=== PATIENT | female | born 1940 | race Caucasian/White ===

== ENCOUNTER 2023-03-31 10:45 | Emergency (ER) | payer OTHER ==
[~2023-03-31] VITALS: Ht 162.6 cm; Wt 101.2 kg
[2023-03-31 11:59] VITALS: PULSE 80; RESP 16; TEMP 98; O2SAT 96
[2023-03-31] MEDS: SODIUM CHLORIDE 0.9% 1,000 ML IV ONE (13:03)
[2023-03-31 13:12] LABS: Hematocrit 34.6 % (36.0-46.0); Hemoglobin 11.5 g/dL (12.2-16.2); Mean Corpuscular Hemoglobin 33.5 pg (28.0-32.0); Mean Corpuscular Hgb Conc. 33.3 g/dL (32.0-36.0); Mean Corpuscular Volume 100.5 fL (80.0-100.0); Red Blood Cells 3.45 10^6/uL (4.0-5.20); Red Cell Distribution Width 14.1 % (11.8-14.3); White Blood Cell 9.4 10^3/uL (4.4-10.8)
[2023-03-31 13:21] LABS: Basophils % (manual) 0 (0.0-2.0); Blast Cells 0; Eosinophils % (manual) 0 (0-7); Metamyelocytes % 0; Myelocytes % 0; Promyelocytes % 0; Reactive Lymphocytes 0
[2023-03-31 13:48] LABS: Albumin 3.4 g/dL (3.2-4.8); Alkaline Phosphatase 75 U/L (46-116); Anion Gap 5 (5-15); Aspartate Aminotransferase 10 U/L (13-40); BUN/Creatinine Ratio 23.3 (10.0-20.0); Bilirubin, Total 0.8 mg/dL (0.2-1.0); Blood Urea Nitrogen 30 mg/dL (9-23); Calcium 9.6 mg/dL (8.7-10.4); Carbon Dioxide 29 mmol/L (20-30); Chloride 100 mmol/L (98-107); Glucose 164 mg/dL (74-106); Magnesium 1.2 mg/dL (1.6-2.6); Potassium 4.1 mmol/L (3.5-5.1); Sodium 134 mmol/L (136-145); Total Protein 6.8 g/dL (5.7-8.2)
[2023-03-31 13:53] LABS: Alanine Aminotransferase < 9 U/L (7-40)
[2023-03-31 14:20] LABS: Band Neutrophils % (manual) 2; Lymphocytes % (manual) 22 (10.0-50.0); Monocytes % (manual) 26 (0-12)
[2023-03-31 14:21] LABS: Platelet Estimate Adequate
[2023-03-31 14:38] LABS: COVID19 ANTIGEN SOFIA FIA NEGATIVE (NEGATIVE)
[2023-03-31 16:20] LABS: Urine Amorphous Crystal FEW /hpf (None Seen); Urine Bacteria MOD /hpf (None Seen); Urine Blood 1+ /uL (Negative); Urine Clarity HAZY (Clear); Urine Color Yellow (Yellow); Urine Hyaline Cast FEW /lpf (0 - 2); Urine Mucus FEW (None Seen); Urine Protein, UAD TRACE (Negative); Urine Specific Gravity 1.018 (1.001-1.035); Urine Urobilinogen Normal (Negative); Urine WBC 14 /hpf (0 - 5); Urine pH 5.5 (5.0-8.0)
[2023-03-31] MEDS: MAGNESIUM SULFATE 1GM/100ML 100 ML IV SCH (16:58)
[2023-03-31] MEDS: cefTRIAXone 1GM/50ML D5W 50 ML IV ONE (18:51)
[2023-03-31] MEDS ORDERED: BISM262C44 PO (18:59)
[2023-03-31] MEDS ORDERED: CEFD300C2 PO (18:59)
[2023-03-31] MEDS ORDERED: ALBUAER3 IN (18:59)
[2023-03-31] MEDS ORDERED: CARB6.5S44 OT (18:59)
[2023-03-31 19:00] VITALS: BP 108/64; PULSE 80; RESP 16; O2SAT 97
== END 2023-03-31 19:30 | disposition home or self-care (01) ==
LOC: ER 10:45
DX: J84.10 Pulmonary fibrosis, unspecified (principal); N39.0 Urinary tract infection, site not specified; J06.9 Acute upper respiratory infection, unspecified; D50.9 Iron deficiency anemia, unspecified; E11.21 Type 2 diabetes mellitus with diabetic nephropathy; E11.22 Type 2 diabetes mellitus with diabetic chronic kidney disease; I13.0 Hypertensive heart and chronic kidney disease with heart failure and stage 1 through stage 4 chronic kidney disease, or unspecified chronic kidney disease; N18.30 Chronic kidney disease, stage 3 unspecified; I50.9 Heart failure, unspecified; E11.65 Type 2 diabetes mellitus with hyperglycemia; E83.42 Hypomagnesemia; H61.23 Impacted cerumen, bilateral; E78.5 Hyperlipidemia, unspecified; Z20.822 Contact with and (suspected) exposure to COVID-19
CPT/HCPCS: 36415; 71046; 80053; 81001; 83735; 84484; 85007; 85027; 87426; 93005; 96361; 96365; 96366; 96367; 99285; J0696; J3475; J7030

== ENCOUNTER 2023-04-01 16:39 | Inpatient (IN) | payer OTHER ==
[~2023-04-01] VITALS: Ht 162.6 cm; Wt 109.9 kg
[~2023-04-01 16:39] MED LIST: ALBUAER3 IN; BISM262C44 PO; CARB6.5S44 OT; CEFD300C2 PO
[2023-04-01 17:25] VITALS: PULSE 104; RESP 20; O2SAT 94
[2023-04-01 19:30] VITALS: RESP 18; O2SAT 95
[2023-04-01] MEDS: ALBUTEROL SULF 2.5 MG/0.5ML(0.5%) NEB SOLN NEB ONE (19:39)
[2023-04-01 19:40] LABS: Hematocrit 32.9 % (36.0-46.0); Hemoglobin 10.9 g/dL (12.2-16.2); Mean Corpuscular Hemoglobin 33.1 pg (28.0-32.0); Mean Corpuscular Hgb Conc. 33.2 g/dL (32.0-36.0); Mean Corpuscular Volume 99.8 fL (80.0-100.0); Red Blood Cells 3.29 10^6/uL (4.0-5.20)
[2023-04-01 19:41] LABS: Basophils % (manual) 0 (0.0-2.0); Blast Cells 0; Eosinophils % (manual) 0 (0-7); Promyelocytes % 0
[2023-04-01 19:56] LABS: Alkaline Phosphatase 100 U/L (46-116); Anion Gap 7 (5-15); Aspartate Aminotransferase 16 U/L (13-40); BUN/Creatinine Ratio 23.9 (10.0-20.0); Bilirubin, Total 1.2 mg/dL (0.2-1.0); Blood Urea Nitrogen 32 mg/dL (9-23); Calcium 9.3 mg/dL (8.5-10.1); Carbon Dioxide 29 mmol/L (20-30); Chloride 100 mmol/L (98-107); Glucose 185 mg/dL (74-106); Potassium 4.2 mmol/L (3.5-5.1); Sodium 136 mmol/L (136-145); Total Protein 5.9 g/dL (5.7-8.2)
[2023-04-01 19:57] LABS: Alanine Aminotransferase < 9 U/L (7-40)
[2023-04-01] MEDS: SODIUM CHLORIDE 0.9% 250 ML IV ONE (20:22)
[2023-04-01] MEDS: SODIUM CHLORIDE 0.9% 1,000 ML IV ONE ×2 (20:45→21:00)
[2023-04-01 20:48] LABS: Band Neutrophils % (manual) 10; Lymphocytes % (manual) 20 (10.0-50.0); Monocytes % (manual) 22 (0-12)
[2023-04-01 20:49] LABS: Metamyelocytes % 2; Myelocytes % 1; Platelet Estimate Adequate; RBC Morphology Normal; Reactive Lymphocytes 1
[2023-04-01] MEDS: NOREPINEPHRINE 8 MG/250ML KIT 250 ML IV SCH (22:43)
[2023-04-01 22:45] VITALS: PULSE 115; RESP 18; O2SAT 95
[2023-04-01] MEDS: levoFLOXacin 500MG 100 ML IV ONE (22:49)
[2023-04-02] VITALS (7 sets, daily range): BP systolic 107; BP diastolic 70; PULSE 80–120; RESP 20–29; O2SAT 90–94
[2023-04-02] MEDS ORDERED: AMIODARONE 450mg/250ml AE 250 ML IV SCH (05:00)
[2023-04-02] MEDS ORDERED: ONDANSETRON HCL 4 MG/2 ML VIAL IV PRN (05:45)
[2023-04-02] MEDS ORDERED: NITROGLYCERIN 0.4 MG SL TAB SL PRN (05:45)
[2023-04-02] MEDS ORDERED: ACETAMINOPHEN 325 MG TAB PO PRN (05:45)
[2023-04-02] MEDS ORDERED: ALBUTEROL SULF 2.5 MG/0.5ML(0.5%) NEB SOLN NEB PRN (05:45)
[2023-04-02] MEDS ORDERED: MORPHINE SULFATE INJ 2 MG/ml SYRG IV PRN (05:45)
[2023-04-02] MEDS: DIGOXIN (250MCG/ML) 2 ML AMPULE IV ONE (06:39)
[2023-04-02] MEDS: FUROSEMIDE 20 MG/2 ML VIAL IV SCH ×2 (07:18→19:14)
[2023-04-02] MEDS: ASPirin 81 mg TAB PO SCH (09:21)
[2023-04-02] MEDS: cefTRIAXone 1GM/50ML D5W 50 ML IV SCH (09:21)
[2023-04-02 09:35] LABS: Urine Bacteria FEW /hpf (None Seen); Urine Blood 2+ /uL (Negative); Urine Clarity Clear (Clear); Urine Color Yellow (Yellow); Urine Protein, UAD TRACE (Negative); Urine Specific Gravity 1.014 (1.001-1.035); Urine Urobilinogen Normal (Negative); Urine WBC 2 /hpf (0 - 5)
[2023-04-02 09:42] LABS: Creatinine, Urine 97.78 mg/dL (30.0-125.0)
[2023-04-02] MEDS ORDERED: LOSA100T58 PO (11:07)
[2023-04-02] MEDS ORDERED: MIRT1TAB38 PO (11:07)
[2023-04-02] MEDS ORDERED: CHLO25TA2 PO (11:07)
[2023-04-02] MEDS ORDERED: CARV25TA55 PO (11:07)
[2023-04-02] MEDS ORDERED: OMEP-434 PO (11:07)
[2023-04-02] MEDS ORDERED: CITA-77 PO (11:07)
[2023-04-02] MEDS ORDERED: SIMV40TA18 PO (11:07)
[2023-04-02] MEDS: LEVALBUTEROL HCL 1.25 MG/3 ML NEB NEB SCH (13:08)
[2023-04-02] MEDS: IPRATROPIUM BROM 0.5 MG/2.5ML INH SOL NEB SCH (13:08)
[2023-04-02 14:01] LABS: INR 1.26 (0.9-1.15); Partial Thromboplastin Time 26.2 SEC (24.5-34.5)
[2023-04-02 14:45] LABS: Chloride 103 mmol/L (98-107); Potassium 3.9 mmol/L (3.5-5.1); Sodium 135 mmol/L (136-145)
[2023-04-02 14:46] LABS: Anion Gap 7 (5-15); Carbon Dioxide 25 mmol/L (20-30)
[2023-04-02 14:47] LABS: Calcium 9.6 mg/dL (8.5-10.1)
[2023-04-02 14:52] LABS: BUN/Creatinine Ratio 19.8 (10.0-20.0); Blood Urea Nitrogen 32 mg/dL (9-23); Glucose 162 mg/dL (74-106)
[2023-04-02] MEDS: AMIODARONE BOLUS KIT 100 ML IV ONE (15:26)
[2023-04-02] MEDS: AMIODARONE 450mg/250ml AE 250 ML IV SCH ×2 (15:49→23:10)
[2023-04-02] MEDS: LIDOCAINE 1% (LOCAL ANESTH.) PF 5ml SDV ID ONE (16:48)
[2023-04-02] MEDS: LINEZOLID 600MG/300ML 300 ML IV SCH (21:10)
[2023-04-02] MEDS: SODIUM CHLOR 0.9% PF (SALINE LOCK) 10ML VIAL/SYR IV SCH (21:10)
[2023-04-02] MEDS: CEFEPIME 2GM/50ML NS 50 ML IV SCH (21:10)
[2023-04-02] MEDS: ATORVASTATIN 20 MG TAB PO SCH (21:11)
[2023-04-02] MEDS: ENOXAPARIN SOD 100 MG/1 ML SYRINGE SC SCH (21:11)
[2023-04-02] MEDS ORDERED: ATORVASTATIN 20 MG TAB PO SCH (22:00)
[2023-04-02] MEDS ORDERED: CARVEDILOL 12.5 MG TAB PO SCH (22:00)
[2023-04-03] VITALS (9 sets, daily range): PULSE 72–125; RESP 19–25; O2SAT 89–97
[2023-04-03 05:43] LABS: Hematocrit 31.5 % (36.0-46.0); Hemoglobin 10.5 g/dL (12.2-16.2); Mean Corpuscular Hemoglobin 33.4 pg (28.0-32.0); Mean Corpuscular Hgb Conc. 33.4 g/dL (32.0-36.0); Red Blood Cells 3.15 10^6/uL (4.0-5.20); Red Cell Distribution Width 14.2 % (11.8-14.3); White Blood Cell 8.6 10^3/uL (4.4-10.8)
[2023-04-03 06:02] LABS: Basophils % (manual) 0 (0.0-2.0); Blast Cells 0; Eosinophils % (manual) 0 (0-7); Reactive Lymphocytes 0
[2023-04-03 06:12] LABS: Albumin 3.1 g/dL (3.2-4.8); Alkaline Phosphatase 88 U/L (46-116); Anion Gap 9 (5-15); Aspartate Aminotransferase 16 U/L (13-40); BUN/Creatinine Ratio 21.3 (10.0-20.0); Bilirubin, Total 0.9 mg/dL (0.2-1.0); Blood Urea Nitrogen 35 mg/dL (9-23); Calcium 9.3 mg/dL (8.7-10.4); Carbon Dioxide 25 mmol/L (20-30); Chloride 101 mmol/L (98-107); Glucose 173 mg/dL (74-106); Potassium 3.6 mmol/L (3.5-5.1); Sodium 135 mmol/L (136-145); Total Protein 6.3 g/dL (5.7-8.2)
[2023-04-03 06:55] LABS: Alanine Aminotransferase < 9 U/L (7-40)
[2023-04-03 11:31] LABS: Rapid Influenza A Negative (Negative); Rapid Influenza B Negative (Negative)
[2023-04-03 11:41] LABS: Band Neutrophils % (manual) 4; Lymphocytes % (manual) 13 (10.0-50.0); Metamyelocytes % 22; Monocytes % (manual) 17 (0-12); Myelocytes % 2; Promyelocytes % 2
[2023-04-03 11:42] LABS: Platelet Estimate Adequate
[2023-04-03] MEDS: GENTAMICIN OPTH sol 0.3% 5ml EACHEYE SCH (14:24)
[2023-04-03] MEDS: AMIODARONE BOLUS KIT 100 ML IV ONE (21:56)
[2023-04-03] MEDS: DIGOXIN (250MCG/ML) 2 ML AMPULE IV ONE (23:08)
[2023-04-04] VITALS (12 sets, daily range): PULSE 99–115; RESP 20–32; O2SAT 91–96
[2023-04-04 05:59] LABS: Chloride 99 mmol/L (98-107); Potassium 3.3 mmol/L (3.5-5.1); Sodium 132 mmol/L (136-145)
[2023-04-04 06:00] LABS: Anion Gap 9 (5-15); Calcium 8.8 mg/dL (8.7-10.4); Carbon Dioxide 24 mmol/L (20-30)
[2023-04-04 06:05] LABS: BUN/Creatinine Ratio 25.5 (10.0-20.0); Blood Urea Nitrogen 35 mg/dL (9-23); Glucose 201 mg/dL (74-106)
[2023-04-04 06:08] LABS: Hematocrit 32.1 % (36.0-46.0); Hemoglobin 10.8 g/dL (12.2-16.2); Mean Corpuscular Hemoglobin 33.5 pg (28.0-32.0); Mean Corpuscular Hgb Conc. 33.5 g/dL (32.0-36.0); Mean Corpuscular Volume 99.9 fL (80.0-100.0); Red Blood Cells 3.22 10^6/uL (4.0-5.20); Red Cell Distribution Width 13.9 % (11.8-14.3); White Blood Cell 7.5 10^3/uL (4.4-10.8)
[2023-04-04 06:20] LABS: Basophils % (manual) 0 (0.0-2.0); Eosinophils % (manual) 0 (0-7); Metamyelocytes % 0; Myelocytes % 0; Promyelocytes % 0; Reactive Lymphocytes 0
[2023-04-04] MEDS: POTASSIUM CHL 20 Meq TABLET PO ONE (08:31)
[2023-04-04 08:52] LABS: Band Neutrophils % (manual) 12; Blast Cells 2; Lymphocytes % (manual) 34 (10.0-50.0); Monocytes % (manual) 16 (0-12); Platelet Estimate Adequate
[2023-04-04] MEDS: FUROSEMIDE 20 MG/2 ML VIAL IV SCH (10:20)
[2023-04-04] MEDS: APIXABAN 2.5 MG TAB PO SCH (10:24)
[2023-04-04] MEDS: APIXABAN 2.5 MG TAB PO ONE (11:53)
[2023-04-04] MEDS: POTASSIUM CHL 20MEQ/100ML 100 ML IV SCH (11:54)
[2023-04-04] MEDS: FUROSEMIDE 20 MG/2 ML VIAL IV ONE (11:55)
[2023-04-04] MEDS: VASOPRESSIN 20 UNITS in SODIUM CHL 0.9% 99 ML IV SCH (12:49)
[2023-04-04] MEDS: HYDROCORTISONE SOD SUCC 100 MG/2ML INJ VIAL IV SCH (22:47)
[2023-04-04] MEDS: APIXABAN 5 MG TAB PO SCH (22:50)
[2023-04-04] MEDS: guaiFENesin-DM 100/10mg/5ml SYR PO PRN (22:50)
[2023-04-05] VITALS (10 sets, daily range): BP systolic 102; BP diastolic 60; PULSE 76–118; RESP 20–35; TEMP 98.7; O2SAT 88–97
[2023-04-05 05:27] LABS: Hematocrit 29.1 % (36.0-46.0); Hemoglobin 9.8 g/dL (12.2-16.2); Mean Corpuscular Hgb Conc. 33.8 g/dL (32.0-36.0)
[2023-04-05 05:29] LABS: Mean Corpuscular Hemoglobin 33.9 pg (28.0-32.0); Mean Corpuscular Volume 100.5 fL (80.0-100.0); Red Cell Distribution Width 13.9 % (11.8-14.3); White Blood Cell 6.1 10^3/uL (4.4-10.8)
[2023-04-05 05:56] LABS: Basophils % (manual) 0 (0.0-2.0); Eosinophils % (manual) 0 (0-7); Metamyelocytes % 0; Myelocytes % 0; Promyelocytes % 0; Reactive Lymphocytes 0
[2023-04-05 09:14] LABS: Band Neutrophils % (manual) 8; Blast Cells 4; Lymphocytes % (manual) 22 (10.0-50.0); Monocytes % (manual) 22 (0-12)
[2023-04-05 09:15] LABS: Macrocytosis Slight; Platelet Estimate Decreased
[2023-04-05 09:34] LABS: Base Excess -1.9 mmol/L (-2.0-2.0)
[2023-04-05 09:42] LABS: Chloride 100 mmol/L (98-107); Potassium 4.2 mmol/L (3.5-5.1); Sodium 133 mmol/L (136-145)
[2023-04-05 09:45] LABS: Anion Gap 11 (5-15); Calcium 9.8 mg/dL (8.5-10.1); Carbon Dioxide 22 mmol/L (20-30)
[2023-04-05 09:50] LABS: Alkaline Phosphatase 92 U/L (46-116); BUN/Creatinine Ratio 26.5 (10.0-20.0); Blood Urea Nitrogen 39 mg/dL (9-23); Glucose 264 mg/dL (74-106)
[2023-04-05 09:52] LABS: Albumin 3.1 g/dL (3.2-4.8); Aspartate Aminotransferase 17 U/L (13-40); Total Protein 6.4 g/dL (5.7-8.2)
[2023-04-05 09:55] LABS: Alanine Aminotransferase < 9 U/L (7-40)
[2023-04-05] MEDS ORDERED: POTASSIUM EFFERVESENT TAB 25 MEQ PO SCH (10:00)
[2023-04-05 10:08] LABS: Magnesium 1.3 mg/dL (1.6-2.6)
[2023-04-05] MEDS: MAGNESIUM SULFATE 1GM/100ML 100 ML IV SCH (13:50)
[2023-04-05] MEDS: FUROSEMIDE 20 MG/2 ML VIAL IV ONE (23:50)
[2023-04-06] VITALS (78 sets, daily range): BP systolic 68–139; BP diastolic 32–104; PULSE 88–139; RESP 16–38; TEMP 97–100.6; O2SAT 16–99
[2023-04-06 01:59] LABS: Base Excess -5.1 mmol/L (-2.0-2.0)
[2023-04-06 05:27] LABS: Hemoglobin 10.5 g/dL (12.2-16.2); Red Blood Cells 3.11 10^6/uL (4.0-5.20); White Blood Cell 6.6 10^3/uL (4.4-10.8)
[2023-04-06 05:30] LABS: Hematocrit 31.6 % (36.0-46.0); Mean Corpuscular Hemoglobin 33.6 pg (28.0-32.0); Mean Corpuscular Hgb Conc. 33.1 g/dL (32.0-36.0); Mean Corpuscular Volume 101.6 fL (80.0-100.0); Red Cell Distribution Width 14.6 % (11.8-14.3)
[2023-04-06 05:34] LABS: Chloride 98 mmol/L (98-107); Potassium 3.9 mmol/L (3.5-5.1); Sodium 130 mmol/L (136-145)
[2023-04-06 05:35] LABS: Anion Gap 12 (5-15); Carbon Dioxide 20 mmol/L (20-30)
[2023-04-06 05:36] LABS: Calcium 10.1 mg/dL (8.7-10.4)
[2023-04-06 05:38] LABS: Band Neutrophils % (manual) 0; Basophils % (manual) 0 (0.0-2.0); Eosinophils % (manual) 0 (0-7); Metamyelocytes % 0; Promyelocytes % 0; Reactive Lymphocytes 0
[2023-04-06 05:40] LABS: Glucose 273 mg/dL (74-106)
[2023-04-06 05:41] LABS: BUN/Creatinine Ratio 30.5 (10.0-20.0); Blood Urea Nitrogen 47 mg/dL (9-23); Magnesium 1.9 mg/dL (1.6-2.6)
[2023-04-06 06:56] LABS: Blast Cells 2; Lymphocytes % (manual) 7 (10.0-50.0); Monocytes % (manual) 13 (0-12); Myelocytes % 3; Platelet Estimate Decreased
[2023-04-06 07:44] LABS: Base Excess -4.3 mmol/L (-2.0-2.0)
[2023-04-06] MEDS: ETOMIDATE (2MG/ML) 20ML VIAL IV ONE ×2 (10:07→11:10)
[2023-04-06] MEDS: ROCURONIUM 10MG/ML 10ML VIAL IV ONE ×2 (10:07→11:19)
[2023-04-06] MEDS: MIDAZOLAM DRIP 50 mg/50mL 50 ML IV ONE (10:11)
[2023-04-06] MEDS ORDERED: LIDOCAINE 2%HCL (LOCAL ANESTH.) INJ 20ML MDV ONE (10:25)
[2023-04-06] MEDS ORDERED: LIDOCAINE 2% JELLY 11ml (GLYDO) ONE (10:25)
[2023-04-06] MEDS ORDERED: SODIUM CHLORIDE LOCK 0 ML ONE (10:25)
[2023-04-06] MEDS ORDERED: GLYCOPYRROLATE 0.2 MG/ML 1ML VIAL ONE (10:26)
[2023-04-06] MEDS ORDERED: EPINEPHrine HCL 1 MG/1 ML AMP ONE (10:26)
[2023-04-06] MEDS ORDERED: fentaNYL CITRATE 100 MCG/2 ML VL ONE (10:26)
[2023-04-06] MEDS ORDERED: MIDAZOLAM HCL 5 MG/ML-1ML VIAL ONE (10:26)
[2023-04-06] MEDS: PROPOFOL 100 ML IV SCH (11:00)
[2023-04-06] MEDS: FUROSEMIDE 20 MG/2 ML VIAL IV ONE (11:11)
[2023-04-06] MEDS: FUROSEMIDE INJECTION 100 MG in D5W 5% 100 ML IV SCH (11:36)
[2023-04-06] MEDS: fentaNYL Drip 2500mCg/250mlNS 250 ML IV SCH (11:37)
[2023-04-06] MEDS: MIDAZOLAM DRIP 50 mg/50mL 50 ML IV SCH (11:38)
[2023-04-06 12:27] LABS: Base Excess -7.4 mmol/L (-2.0-2.0)
[2023-04-06] MEDS ORDERED: Glucerna 1.2 Cal 1Liter BOTTLE GT SCH (12:45)
[2023-04-06] MEDS ORDERED: fentaNYL Drip 2500mCg/250mlNS 250 ML IV SCH (12:45)
[2023-04-06 14:46] LABS: Base Excess -6.3 mmol/L (-2.0-2.0)
[2023-04-06 16:31] LABS: Base Excess -4.8 mmol/L (-2.0-2.0)
[2023-04-06] MEDS: AMIODARONE BOLUS KIT 100 ML IV ONE (21:00)
[2023-04-06] MEDS: AMIODARONE 450mg/250ml AE 250 ML IV SCH (21:17)
[2023-04-06] MEDS: AMIODARONE HCL 75 MG in D5W 5% 100 ML IV ONE (21:43)
[2023-04-06] MEDS: ALBUMIN 25% 100 ML IV ONE (23:16)
[2023-04-07] VITALS (108 sets, daily range): BP systolic 68–134; BP diastolic 22–86; PULSE 73–136; RESP 24–29; TEMP 98.1–99.7; O2SAT 86–99
[2023-04-07 04:29] LABS: Hematocrit 29.5 % (36.0-46.0); Hemoglobin 9.7 g/dL (12.2-16.2); Mean Corpuscular Hemoglobin 33.2 pg (28.0-32.0); Mean Corpuscular Hgb Conc. 32.8 g/dL (32.0-36.0); Mean Corpuscular Volume 101.1 fL (80.0-100.0); Red Blood Cells 2.91 10^6/uL (4.0-5.20); Red Cell Distribution Width 14.8 % (11.8-14.3); White Blood Cell 7.1 10^3/uL (4.4-10.8)
[2023-04-07 04:46] LABS: Band Neutrophils % (manual) 0; Basophils % (manual) 0 (0.0-2.0); Eosinophils % (manual) 0 (0-7); Metamyelocytes % 0; Promyelocytes % 0; Reactive Lymphocytes 0
[2023-04-07 05:02] LABS: Albumin 3.3 g/dL (3.2-4.8); Alkaline Phosphatase 68 U/L (46-116); Anion Gap 11 (5-15); Aspartate Aminotransferase 14 U/L (13-40); BUN/Creatinine Ratio 26.5 (10.0-20.0); Calcium 9.7 mg/dL (8.7-10.4); Carbon Dioxide 21 mmol/L (20-30); Chloride 100 mmol/L (98-107); Glucose 283 mg/dL (74-106); Potassium 3.9 mmol/L (3.5-5.1); Sodium 132 mmol/L (136-145)
[2023-04-07 05:03] LABS: Bilirubin, Total 1.7 mg/dL (0.2-1.0); Total Protein 6.5 g/dL (5.7-8.2)
[2023-04-07 05:16] LABS: Alanine Aminotransferase < 9 U/L (7-40); Blood Urea Nitrogen 62 mg/dL (9-23)
[2023-04-07 05:43] LABS: Blast Cells 3; Lymphocytes % (manual) 17 (10.0-50.0); Monocytes % (manual) 21 (0-12); Myelocytes % 1; Platelet Estimate Decreased
[2023-04-07] MEDS: ENOXAPARIN SOD 100 MG/1 ML SYRINGE SC SCH (10:13)
[2023-04-07 10:15] LABS: Base Excess -5.9 mmol/L (-2.0-2.0)
[2023-04-07] MEDS: SODIUM CHLORIDE 0.9% 500 ML IV ONE (12:02)
[2023-04-07] MEDS ORDERED: DEXTROSE (50%) 50ML SYRG IV PRN (14:30)
[2023-04-07] MEDS: InsuLIN REG 1unit/0.01ml Soln (100units/ml) SC SCH (17:55)
[2023-04-08] VITALS (105 sets, daily range): BP systolic 62–129; BP diastolic 37–80; PULSE 72–140; RESP 25–26; TEMP 97.5–99; O2SAT 89–97
[2023-04-08 04:15] LABS: Hematocrit 29.5 % (36.0-46.0); Hemoglobin 9.6 g/dL (12.2-16.2); Mean Corpuscular Hemoglobin 32.5 pg (28.0-32.0); Mean Corpuscular Hgb Conc. 32.5 g/dL (32.0-36.0); Mean Corpuscular Volume 99.9 fL (80.0-100.0); Red Blood Cells 2.96 10^6/uL (4.0-5.20); Red Cell Distribution Width 14.6 % (11.8-14.3); White Blood Cell 6.8 10^3/uL (4.4-10.8)
[2023-04-08 04:26] LABS: Band Neutrophils % (manual) 0; Basophils % (manual) 0 (0.0-2.0); Eosinophils % (manual) 0 (0-7); Metamyelocytes % 0; Promyelocytes % 0; Reactive Lymphocytes 0
[2023-04-08 04:45] LABS: Alkaline Phosphatase 71 U/L (46-116); Anion Gap 11 (5-15); Aspartate Aminotransferase 21 U/L (13-40); Calcium 9.6 mg/dL (8.7-10.4); Carbon Dioxide 21 mmol/L (20-30); Chloride 100 mmol/L (98-107); Glucose 301 mg/dL (74-106); Sodium 132 mmol/L (136-145); Total Protein 6.1 g/dL (5.7-8.2)
[2023-04-08 04:59] LABS: Alanine Aminotransferase < 9 U/L (7-40)
[2023-04-08 05:00] LABS: Blood Urea Nitrogen 86 mg/dL (9-23)
[2023-04-08 06:26] LABS: Blast Cells 6; Lymphocytes % (manual) 10 (10.0-50.0); Monocytes % (manual) 21 (0-12); Myelocytes % 9; Platelet Estimate Decreased
[2023-04-08 07:13] LABS: Base Excess -6.8 mmol/L (-2.0-2.0)
[2023-04-08] MEDS: SODIUM CHLORIDE 0.9% 250 ML IV ONE (11:00)
[2023-04-08] MEDS: ENOXAPARIN SOD 100 MG/1 ML SYRINGE SC SCH (11:01)
[2023-04-08] MEDS: INSULIN LANTUS (GLARGINE) 1 /0.01ml (100units/ml) SC ONE (11:32)
[2023-04-08] MEDS: ACCU-CHEK COMFORT CURVE STRIP VI SCH (11:32)
[2023-04-08] MEDS: InsuLIN REG 1unit/0.01ml Soln (100units/ml) SC SCH (11:33)
[2023-04-08] MEDS: ALBUMIN 25% 100 ML IV ONE (20:30)
[2023-04-09] VITALS (105 sets, daily range): BP systolic 40–195; BP diastolic 21–111; PULSE 104–143; RESP 25–28; TEMP 97.2–98.4; O2SAT 86–99
[2023-04-09 04:32] LABS: Hemoglobin 9.5 g/dL (12.2-16.2)
[2023-04-09 04:35] LABS: Mean Corpuscular Hemoglobin 33.6 pg (28.0-32.0); Mean Corpuscular Hgb Conc. 33.8 g/dL (32.0-36.0); Mean Corpuscular Volume 99.4 fL (80.0-100.0); Red Blood Cells 2.82 10^6/uL (4.0-5.20); Red Cell Distribution Width 14.3 % (11.8-14.3); White Blood Cell 6.7 10^3/uL (4.4-10.8)
[2023-04-09 04:37] LABS: INR 1.42 (0.9-1.15); Prothrombin Time 14.6 sec (9.3-11.8)
[2023-04-09 04:41] LABS: Alkaline Phosphatase 63 U/L (46-116); Anion Gap 10 (5-15); Aspartate Aminotransferase 32 U/L (13-40); Calcium 9.6 mg/dL (8.7-10.4); Carbon Dioxide 21 mmol/L (20-30); Chloride 103 mmol/L (98-107); Glucose 284 mg/dL (74-106); Magnesium 2.2 mg/dL (1.6-2.6); Potassium 3.8 mmol/L (3.5-5.1); Sodium 134 mmol/L (136-145)
[2023-04-09 04:42] LABS: Bilirubin, Total 2.7 mg/dL (0.2-1.0); Total Protein 5.8 g/dL (5.7-8.2)
[2023-04-09 04:58] LABS: Alanine Aminotransferase < 9 U/L (7-40); Blood Urea Nitrogen 94 mg/dL (9-23)
[2023-04-09 05:22] LABS: Basophils % (manual) 0 (0.0-2.0); Eosinophils % (manual) 0 (0-7); Reactive Lymphocytes 0
[2023-04-09] MEDS: INSULIN LANTUS (GLARGINE) 1 /0.01ml (100units/ml) SC SCH (06:49)
[2023-04-09] MEDS ORDERED: INSULIN LANTUS (GLARGINE) 1 /0.01ml (100units/ml) SC SCH (07:00)
[2023-04-09 09:28] LABS: Lymphocytes % (manual) 14 (10.0-50.0); Metamyelocytes % 2
[2023-04-09 09:29] LABS: Band Neutrophils % (manual) 7; Monocytes % (manual) 30 (0-12)
[2023-04-09 09:31] LABS: Blast Cells 4; Myelocytes % 2; Promyelocytes % 1
[2023-04-09 09:33] LABS: Platelet Estimate Markedly Decreased; RBC Morphology Normal
[2023-04-09 09:44] LABS: Base Excess -5.7 mmol/L (-2.0-2.0)
[2023-04-09] MEDS: NOREPINEPHRINE BITARTRATE 32 MG in SODIUM CHL 0.9% 218 ML IV SCH (16:04)
[2023-04-09] MEDS: PANTOPRAZOLE 40 MG/10 ML VIAL INJ IV SCH (22:13)
[2023-04-10] VITALS (109 sets, daily range): BP systolic 69–135; BP diastolic 35–73; PULSE 73–144; RESP 21–28; TEMP 97–99.1; O2SAT 89–96
[2023-04-10] MEDS: PHENYLEPHRINE INJ 80 MG in SODIUM CHL 0.9% 242 ML IV SCH
[2023-04-10 04:11] LABS: Hemoglobin 9.8 g/dL (12.2-16.2)
[2023-04-10 04:13] LABS: Hematocrit 29.2 % (36.0-46.0); Mean Corpuscular Hemoglobin 33.6 pg (28.0-32.0); Mean Corpuscular Hgb Conc. 33.6 g/dL (32.0-36.0); Mean Corpuscular Volume 100.2 fL (80.0-100.0); Red Blood Cells 2.91 10^6/uL (4.0-5.20); Red Cell Distribution Width 14.9 % (11.8-14.3)
[2023-04-10 04:33] LABS: Alanine Aminotransferase 13 U/L (7-40); Albumin 2.9 g/dL (3.2-4.8); Alkaline Phosphatase 68 U/L (46-116); Anion Gap 10 (5-15); Aspartate Aminotransferase 50 U/L (13-40); BUN/Creatinine Ratio 29.9 (10.0-20.0); Bilirubin, Total 3.1 mg/dL (0.2-1.0); Calcium 9.8 mg/dL (8.7-10.4); Carbon Dioxide 21 mmol/L (20-30); Chloride 104 mmol/L (98-107); Glucose 216 mg/dL (74-106); Magnesium 2.3 mg/dL (1.6-2.6); Phosphorus 5.5 mg/dL (2.4-5.1); Potassium 3.9 mmol/L (3.5-5.1); Sodium 135 mmol/L (136-145)
[2023-04-10 04:34] LABS: Total Protein 5.7 g/dL (5.7-8.2)
[2023-04-10 04:52] LABS: Basophils % (manual) 0 (0.0-2.0); Eosinophils % (manual) 0 (0-7)
[2023-04-10 04:57] LABS: Blood Urea Nitrogen 97 mg/dL (9-23)
[2023-04-10] MEDS: BUMETANIDE 2.5mg/10ml (0.25 mg/ml) INJ IV SCH (05:34)
[2023-04-10 06:44] LABS: Base Excess -6.2 mmol/L (-2.0-2.0)
[2023-04-10] MEDS: INSULIN LANTUS (GLARGINE) 1 /0.01ml (100units/ml) SC SCH (06:44)
[2023-04-10] MEDS: PHENYLEPHRINE IV 250 ML IV SCH (08:45)
[2023-04-10 08:51] LABS: Band Neutrophils % (manual) 7; Blast Cells 4; Lymphocytes % (manual) 33 (10.0-50.0); Metamyelocytes % 1; Monocytes % (manual) 19 (0-12); Myelocytes % 4; Promyelocytes % 1; Reactive Lymphocytes 1
[2023-04-10 08:52] LABS: Macrocytosis Slight; Platelet Estimate Markedly Decreased
[2023-04-10] MEDS: CEFEPIME 2GM/50ML NS 50 ML IV SCH (10:05)
[2023-04-10] MEDS: AMIODARONE HCL 200 MG TAB PO ONE (15:25)
[2023-04-10] MEDS: AMIODARONE 450mg/250ml AE 250 ML IV SCH (17:43)
[2023-04-10] MEDS ORDERED: AMIODARONE HCL 200 MG TAB PO SCH (22:00)
[2023-04-10] MEDS: ALBUMIN 5% 50 ML IV ONE ×2 (22:45→23:47)
[2023-04-10] MEDS: SODIUM CHLORIDE 0.9% 500 ML IV ONE (23:46)
[2023-04-11] VITALS (112 sets, daily range): BP systolic 72–131; BP diastolic 38–64; PULSE 18–133; RESP 23–28; TEMP 98.1–99; O2SAT 88–97
[2023-04-11 04:27] LABS: Hemoglobin 9.7 g/dL (12.2-16.2)
[2023-04-11 04:31] LABS: Hematocrit 29.8 % (36.0-46.0); Mean Corpuscular Hemoglobin 33.7 pg (28.0-32.0); Mean Corpuscular Hgb Conc. 32.6 g/dL (32.0-36.0); Mean Corpuscular Volume 103.1 fL (80.0-100.0); Red Blood Cells 2.89 10^6/uL (4.0-5.20); Red Cell Distribution Width 15.5 % (11.8-14.3); White Blood Cell 20.6 10^3/uL (4.4-10.8)
[2023-04-11 04:39] LABS: Alanine Aminotransferase 18 U/L (7-40); Alkaline Phosphatase 93 U/L (46-116); Anion Gap 12 (5-15); Aspartate Aminotransferase 69 U/L (13-40); Band Neutrophils % (manual) 0; Basophils % (manual) 0 (0.0-2.0); Calcium 9.6 mg/dL (8.7-10.4); Carbon Dioxide 16 mmol/L (20-30); Chloride 107 mmol/L (98-107); Eosinophils % (manual) 0 (0-7); Glucose 178 mg/dL (74-106); Magnesium 2.2 mg/dL (1.6-2.6); Metamyelocytes % 0; Phosphorus 6.5 mg/dL (2.4-5.1); Potassium 4.5 mmol/L (3.5-5.1); Promyelocytes % 0; Reactive Lymphocytes 0; Sodium 135 mmol/L (136-145)
[2023-04-11 04:40] LABS: Bilirubin, Total 4.5 mg/dL (0.2-1.0)
[2023-04-11 04:41] LABS: Total Protein 5.8 g/dL (5.7-8.2)
[2023-04-11 05:05] LABS: Blood Urea Nitrogen 90 mg/dL (9-23)
[2023-04-11 09:00] LABS: Blast Cells 5; Lymphocytes % (manual) 6 (10.0-50.0); Monocytes % (manual) 38 (0-12); Myelocytes % 3
[2023-04-11 09:01] LABS: Platelet Estimate Decreased
[2023-04-11] MEDS: EPINEPHrine HCL 250 ML IV SCH (11:00)
[2023-04-11] MEDS: SODIUM BICARB 8.4% 50Meq/50ml SYR Vial IV ONE (11:43)
[2023-04-12] VITALS (53 sets, daily range): BP systolic 81–126; BP diastolic 35–71; PULSE 78–129; RESP 25–26; TEMP 97.5–98.1; O2SAT 90–96
[2023-04-12 03:58] LABS: Mean Corpuscular Hemoglobin 33.1 pg (28.0-32.0)
[2023-04-12 04:01] LABS: Hematocrit 26.8 % (36.0-46.0); Hemoglobin 8.6 g/dL (12.2-16.2); Mean Corpuscular Hgb Conc. 32.2 g/dL (32.0-36.0); Mean Corpuscular Volume 102.7 fL (80.0-100.0); Red Blood Cells 2.61 10^6/uL (4.0-5.20); White Blood Cell 21.3 10^3/uL (4.4-10.8)
[2023-04-12 04:09] LABS: Basophils % (manual) 0 (0.0-2.0); Eosinophils % (manual) 0 (0-7); Promyelocytes % 0; Reactive Lymphocytes 0
[2023-04-12 04:22] LABS: Alanine Aminotransferase 25 U/L (7-40); Albumin 2.9 g/dL (3.2-4.8); Alkaline Phosphatase 117 U/L (46-116); Anion Gap 14 (5-15); Aspartate Aminotransferase 91 U/L (13-40); BUN/Creatinine Ratio 22.5 (10.0-20.0); Bilirubin, Total 4.9 mg/dL (0.2-1.0); Calcium 9.5 mg/dL (8.5-10.1); Carbon Dioxide 17 mmol/L (20-30); Chloride 105 mmol/L (98-107); Glucose 180 mg/dL (74-106); Potassium 4.6 mmol/L (3.5-5.1); Sodium 136 mmol/L (136-145); Total Protein 5.4 g/dL (5.7-8.2)
[2023-04-12 04:37] LABS: Blood Urea Nitrogen 105 mg/dL (9-23)
[2023-04-12] MEDS: PHENYLEPHRINE HCL 10 MG/ML VL ONE (06:25)
[2023-04-12] MEDS: PHENYLEPHRINE IV 250 ML IV ONE (06:25)
[2023-04-12 07:19] LABS: Band Neutrophils % (manual) 6; Blast Cells 3; Lymphocytes % (manual) 9 (10.0-50.0); Metamyelocytes % 1; Monocytes % (manual) 42 (0-12); Myelocytes % 1
[2023-04-12 07:20] LABS: Platelet Estimate Decreased
[2023-04-12 08:01] LABS: Base Excess -11.2 mmol/L (-2.0-2.0)
[2023-04-12] MEDS: MORPHINE SULFATE INJ 2 MG/ml SYRG IV PRN (11:13)
[2023-04-12] MEDS: LORazepam 2MG/ML-1ML VIAL IV PRN (11:14)
[2023-04-12] MEDS ORDERED: PHENYLEPHRINE IV 250 ML IV ONE (17:24)
[2023-04-12] MEDS ORDERED: SODIUM BICARB 8.4% 50Meq/50ml SYR Vial IV ONE (17:58)
[2023-04-12] MEDS ORDERED: PANTOPRAZOLE 40mg/50ML NS AE 50 ML IV ONE (17:58)
== END 2023-04-12 16:38 | DRG 870 ==
LOC: EDBD 16:39 → ER 16:39 → TELE 04-02 05:49 → ICU WEST 04-06 18:35
PROVIDERS: ADMIT Internal Medicine Pulmonary Disease; ATTEND Internal Medicine Pulmonary Disease
PROC: 5A0935A Assistance with Respiratory Ventilation, Less than 24 Consecutive Hours, High Flow/Velocity Cannula (ICD-10-PCS; 2023-04-01)
PROC: 05HB33Z Insertion of Infusion Device into Right Basilic Vein, Percutaneous Approach (ICD-10-PCS; 2023-04-02)
PROC: B54MZZA Ultrasonography of Right Upper Extremity Veins, Guidance (ICD-10-PCS; 2023-04-02)
PROC: 0BH17EZ Insertion of Endotracheal Airway into Trachea, Via Natural or Artificial Opening (ICD-10-PCS; 2023-04-06)
PROC: 5A0935A Assistance with Respiratory Ventilation, Less than 24 Consecutive Hours, High Flow/Velocity Cannula (ICD-10-PCS; 2023-04-06)
PROC: 0BJ08ZZ Inspection of Tracheobronchial Tree, Via Natural or Artificial Opening Endoscopic (ICD-10-PCS; 2023-04-06)
PROC: 0BDB8ZX Extraction of Left Lower Lobe Bronchus, Via Natural or Artificial Opening Endoscopic, Diagnostic (ICD-10-PCS; 2023-04-06)
PROC: 0BD68ZX Extraction of Right Lower Lobe Bronchus, Via Natural or Artificial Opening Endoscopic, Diagnostic (ICD-10-PCS; 2023-04-06)
PROC: 5A1955Z Respiratory Ventilation, Greater than 96 Consecutive Hours (ICD-10-PCS; principal; 2023-04-06 10:30)
DX: A41.9 Sepsis, unspecified organism (principal); E11.10 Type 2 diabetes mellitus with ketoacidosis without coma; I21.A1 Myocardial infarction type 2; J15.69 Pneumonia due to other Gram-negative bacteria; J96.01 Acute respiratory failure with hypoxia; J96.02 Acute respiratory failure with hypercapnia; N17.0 Acute kidney failure with tubular necrosis; R65.21 Severe sepsis with septic shock; J15.9 Unspecified bacterial pneumonia; I50.33 Acute on chronic diastolic (congestive) heart failure; I13.0 Hypertensive heart and chronic kidney disease with heart failure and stage 1 through stage 4 chronic kidney disease, or unspecified chronic kidney disease; Z68.41 Body mass index [BMI] 40.0-44.9, adult; J44.1 Chronic obstructive pulmonary disease with (acute) exacerbation; N39.0 Urinary tract infection, site not specified; I48.20 Chronic atrial fibrillation, unspecified; R57.9 Shock, unspecified; I48.92 Unspecified atrial flutter; E87.1 Hypo-osmolality and hyponatremia; J44.0 Chronic obstructive pulmonary disease with (acute) lower respiratory infection; N13.6 Pyonephrosis; Z66 Do not resuscitate; R57.0 Cardiogenic shock; E78.5 Hyperlipidemia, unspecified; R79.89 Other specified abnormal findings of blood chemistry; E66.01 Morbid (severe) obesity due to excess calories; D63.1 Anemia in chronic kidney disease; E11.22 Type 2 diabetes mellitus with diabetic chronic kidney disease; R16.0 Hepatomegaly, not elsewhere classified; E11.65 Type 2 diabetes mellitus with hyperglycemia; D75.89 Other specified diseases of blood and blood-forming organs; E87.6 Hypokalemia; E88.09 Other disorders of plasma-protein metabolism, not elsewhere classified; N18.32 Chronic kidney disease, stage 3b; Z79.01 Long term (current) use of anticoagulants; Z71.3 Dietary counseling and surveillance
CPT/HCPCS: 36415; 36569; 36600; 71045; 71250; 76604; 76775; 80048; 80053; 81001; 82140; 82306; 82570; 82805; 82962; 83036; 83605; 83735; 83880; 83970; 84100; 84156; 84300; 84443; 84484; 85007; 85027; 85610; 85730; 87040; 87070; 87077; 87086; 87205; 87804; 93005; 93306; 94002; 94003; 94640; 96361; 96365; C9113; G0378; J0171; J0692; J1815; J1956; J2250; J3480; J7060; P9047